=== PATIENT | male | born 1945 | race Two or more races ===

== ENCOUNTER 2021-12-17 21:28 | Emergency (ER) | payer MEDICARE, OTHER ==
[~2021-12-17] VITALS: Ht 177.8 cm; Wt 72.6 kg
--- NOTE | 2021-12-17 21:38 | NUR ---
[id number] FROM [facility] THIS 76/M WITH CC OF HICCUPS X 45MIN. PATIENT IS [id number]. -CP, -SOB. ABLE TO COMMUNICATE VERBALLY. PLACED IN BED. VITALS CHECKED.
--- NOTE | 2021-12-17 21:45 | NUR ---
EKG DONE, STRIP ATTACHED TO CHART
--- NOTE | 2021-12-17 21:45 | NUR ---
ARCHITECTURAL JOB CAPTAIN AT BEDSIDE
[2021-12-17 22:06] LABS: BASOPHILS % (AUTO) 0.1 % (0.0-2.0); HEMATOCRIT 42 % (39-51); HEMOGLOBIN 13.8 g/dL (13.5-17.5); LYMPHOCYTES % (AUTO) 4.6 % (20.0-44.0); MEAN CORPUSCULAR HGB CONC 33 g/dl (31.0-36.0); MEAN CORPUSCULAR VOLUME 83 fL (80-96); MONOCYTES # (AUTO) 2.3 K/uL (0.1-1.30); MONOCYTES % (AUTO) 10.6 % (2.0-12.0); NEUTROPHILS # (AUTO) 18.1 K/uL (1.8-8.9); NEUTROPHILS % (AUTO) 84.7 % (43.0-81.0); PLATELET COUNT (AUTO) 218 K/uL (150-450); RED BLOOD CELL COUNT(AUTO) 5.07 MIL/uL (4.5-6.0); WHITE BLOOD COUNT (AUTO) 21.4 K/uL (4.3-11.0)
[2021-12-17 22:15] LABS: CALCIUM, SERUM 8.8 mg/dL (8.5-10.1); CARBON DIOXIDE 25 mmol/L (21-32); CHLORIDE 104 mmol/L (98-107); CREATININE 1.6 mg/dL (0.6-1.3); GLUCOSE 114 mg/dL (74-106); POTASSIUM 4.6 mmol/L (3.5-5.1); SODIUM SERUM 136 mmol/L (136-145); UREA NITROGEN, BLOOD 22 mg/dL (7-18)
[2021-12-17] MEDS ORDERED: chlorproMAZINE HCL 25 MG TABLET ONE (22:19)
--- NOTE | 2021-12-17 22:24 | NUR ---
THORAZINE IV IS NOT AVAILABLE. SHIFTED TO PO.
[2021-12-17] MEDS ORDERED: chlorproMAZINE HCL 25 MG TABLET PO ONE (22:30)
[2021-12-17] MEDS ORDERED: IV NS 0.9% 250 ML IV ONE (22:34)
[2021-12-17] MEDS ORDERED: IOHEXOL-300 100 ML VIAL IV ONE (22:34)
[2021-12-17] MEDS ORDERED: CT SWABBABLE VALVE TRANS SET 1 EA INFUS.SET MC ONE (22:34)
--- NOTE | 2021-12-17 22:37 | NUR ---
PATIENT WHEELED TO CT DEPT
--- NOTE | 2021-12-17 22:50 | NUR ---
PT BROUGHT BACK TO ROOM
--- NOTE | 2021-12-17 22:58 | NUR ---
XRAY DONE AT BEDSIDE.
--- NOTE | 2021-12-18 01:11 | NUR ---
URINE SPECIMEN SENT TO LAB
[2021-12-18 02:14] LABS: BILIRUBIN,URINE NEGATIVE (NEGATIVE); COLOR,URINE YELLOW (YELLOW); LEUKOCYTE ESTERASE ,URINE MODERATE (NEGATIVE); NITRITE, URINE NEGATIVE (NEGATIVE); PROTEIN,URINE 100 mg/dl (NEGATIVE); UGLUCOSE NEGATIVE (NEGATIVE); UROBILINOGEN,URINE 0.2 EU/dL (0.2)
[2021-12-18] MEDS ORDERED: CEPHALEXIN MONOHYDRATE 500 MG CAPSULE PO ONE ×2 (02:30→02:48)
[2021-12-18] MEDS ORDERED: CEPH500C2 PO (02:31)
[2021-12-18 02:38] LABS: BACTERIA,URINE MANY /HPF (None Seen); RBC,URINE TOO NUMEROUS TO COUN /HPF (0-2); SQUAMOUS EPITHELIAL CELL,UR Rare /HPF (None Seen); WBC,URINE TOO NUMEROUS TO COUN /HPF (0-3)
--- NOTE | 2021-12-18 02:57 | NUR ---
CALLED [facility] AND SPOKE WITH DIANA VARGHESE TO INFORM THAT PT IS GOING BACK. I ALSO MADE HER AWARE THAT PT HAVE A PRESCRIPTION FOR UTI.
--- NOTE | 2021-12-18 03:30 | NUR ---
TRANSFERRED PATIENT BACK TO [facility]F VIA AMBULANCE. PATIENT IS VITALLY STABLE.
[2021-12-18 03:34] VITALS: BP 100/67
== END 2021-12-18 03:35 ==
LOC: ER 21:31
DX: R06.6 Hiccough (principal); N39.0 Urinary tract infection, site not specified; R51.9 Headache, unspecified; I10 Essential (primary) hypertension; I48.91 Unspecified atrial fibrillation; K21.9 Gastro-esophageal reflux disease without esophagitis; F32.9 Major depressive disorder, single episode, unspecified
CPT/HCPCS: 99285; 70450; 71045; 93005; 74177; 85025; 80048; 36415; 84484 ×2; 87077; 87086; 87186; 81001; J3230; Q0161; J7050; Q9967